=== PATIENT | male | born 1980 | race Two or more races ===

== ENCOUNTER → 2025-03-15 | Outpatient (CLI) | payer BC, SELFPAY ==
--- NOTE | 2025-03-15 16:11 | XR_ITS ---
Examination: Left elbow 3 views Technique: Elbow AP, oblique, lateral 3 views Exam date and time: March 15, 2025 1700 hours INDICATIONS: Elbow pain post injury 4 days ago. FINDINGS: No acute fracture. No dislocation No elbow effusion IMPRESSION: No acute fracture..
--- NOTE | 2025-03-15 16:11 | XR_ITS ---
Examination: Shoulder,left, 3 views Technique: Shoulder AP internal rotation, AP external rotation, Y view shoulder, 3 views Exam date and time :March 15, 1025 1700 hours INDICATIONS: Left shoulder pain beginning 4 days ago. FINDINGS: Moderate narrowing glenohumeral joint 5 mm AC joint separation age-indeterminate No fracture IMPRESSION: Moderate narrowing glenohumeral joint. 5 mm AC joint separation, age indeterminate
== END | disposition home or self-care (01) ==
DX: S59.902A Unspecified injury of left elbow, initial encounter (principal); S43.102A Unspecified dislocation of left acromioclavicular joint, initial encounter; X58.XXXA Exposure to other specified factors, initial encounter; M25.812 Other specified joint disorders, left shoulder
CPT/HCPCS: 73030; 73070